=== PATIENT | female | born 1940 | race Caucasian/White ===

== ENCOUNTER 2017-06-24 10:24 | Emergency (ER) | payer MEDICARE ==
[~2017-06-24] VITALS: Ht 154.9 cm; Wt 54.9 kg
[~2017-06-24 10:24] MED LIST: ALBUTEROL0.09 MG/A2 INH; CLARITIN10 MG PO; Claritin-D 10 M1 T24 PO; LEVOFLOXACIN500 MG PO; MEDROL DOSEPAK4 MG PO; SINGULAIR10 MG PO; TESSALON PERLE100 M1 PO
[2017-06-24] MEDS ORDERED: AUGMENTIN 875875 MG PO (10:52)
== END 2017-06-24 10:55 | disposition home or self-care (01) ==
LOC: ED 10:24
DX: S61.451A Open bite of right hand, initial encounter (principal); Z88.6 Allergy status to analgesic agent; Z88.2 Allergy status to sulfonamides; Z88.8 Allergy status to other drugs, medicaments and biological substances; Z79.899 Other long term (current) drug therapy; W55.01XA Bitten by cat, initial encounter; Y93.89 Activity, other specified; Y92.89 Other specified places as the place of occurrence of the external cause; Y99.8 Other external cause status

== ENCOUNTER → 2017-10-01 | Outpatient (CLI) | payer MEDICARE ==
[~2017-10-01] MED LIST changes: +AUGMENTIN 875875 MG PO
== END | disposition home or self-care (01) ==
LOC: RAD 11:28
DX: M89.9 Disorder of bone, unspecified (principal)

== ENCOUNTER 2019-08-29 19:02 | Emergency (ER) | payer MEDICARE ==
[~2019-08-29] VITALS: Ht 154.9 cm; Wt 52.2 kg
[2019-08-29] MEDS ORDERED: AUGMENTIN 875875 MG PO (19:29)
== END 2019-08-29 20:00 | disposition home or self-care (01) ==
LOC: ED 19:02
DX: S61.431A Puncture wound without foreign body of right hand, initial encounter (principal); E78.00 Pure hypercholesterolemia, unspecified; Z23 Encounter for immunization; Z90.49 Acquired absence of other specified parts of digestive tract; Z88.6 Allergy status to analgesic agent; Z88.2 Allergy status to sulfonamides; Z88.8 Allergy status to other drugs, medicaments and biological substances; Z79.899 Other long term (current) drug therapy; W55.01XA Bitten by cat, initial encounter; Y93.89 Activity, other specified; Y92.89 Other specified places as the place of occurrence of the external cause; Y99.8 Other external cause status

== ENCOUNTER 2020-03-10 22:20 | Emergency (ER) | payer MEDICARE ==
[~2020-03-10] VITALS: Ht 162.5 cm; Wt 72.6 kg
[2020-03-10 23:12] LABS: BASO # 0.1 10*3/uL (0.0-0.1); BASO % 1.1 % (0.0-1.0); EOS # 0.2 10*3/uL (0.0-0.4); EOS % 2.7 % (1.0-4.0); HEMATOCRIT 41.1 % (37.0-47.0); LYMPH # 1.9 10*3/uL (1.3-4.4); LYMPH % 30.4 % (27.0-41.0); MEAN CELL VOLUME 91.7 fl (81.0-99.0); MEAN CORPUSCULAR HGB 29.9 pg (27.0-31.0); MEAN CORPUSCULAR HGB CONC 32.6 g/dl (33.0-37.0); MEAN PLATELET VOLUME 8.8 fl (9.6-12.3); MONO # 0.8 10*3/uL (0.1-1.0); MONO % 12.4 % (3.0-9.0); NEUT # 3.4 10*3/uL (2.3-7.9); NEUT % 53.2 % (47.0-73.0); PLATELET COUNT AUTOMATED 276 10*3/uL (130-400); RED BLOOD COUNT 4.48 10*6/uL (4.10-5.10); RED CELL DISTRI WIDTH 13.2 % (0-14.5); WHITE BLOOD COUNT 6.3 10*3/uL (4.8-10.8)
[2020-03-10 23:22] LABS: INTERNATIONAL NORM RATIO 0.9 (2.0-3.5)
[2020-03-10 23:30] LABS: ALBUMIN 3.8 gm/dl (3.1-4.5); ALKALINE PHOSPHATASE 62 U/L (45-117); BUN 11 mg/dl (7-24); CHLORIDE 110 mmol/L (98-107); CREATININE 0.74 mg/dL (0.55-1.02); POTASSIUM 3.9 mmol/L (3.5-5.1); SGOT/AST 20 IU/L (3-35); SGPT/ALT 24 U/L (12-78); SODIUM 141 mmol/L (136-145); TOTAL PROTEIN 6.7 gm/dL (6.4-8.2)
[2020-03-10 23:40] LABS: TROPONIN I < 0.015 ng/ml (<0.045)
[2020-03-11] MEDS ORDERED: METOPROLOL25 MG PO (00:32)
[2020-03-11 00:41] LABS: BILIRUBIN NEGATIVE (NEGATIVE); BLOOD NEGATIVE (NEGATIVE); CLARITY CLEAR (CLEAR); COLOR YELLOW (YELLOW); GLUCOSE NEGATIVE (NEGATIVE); KETONE NEGATIVE (NEGATIVE); LEUKO ESTERASE NEGATIVE (NEGATIVE); NITRITE NEGATIVE (NEGATIVE); SPECIFIC GRAVITY 1.005 (1.005-1.030); UROBILINOGEN 0.2 E.U./dl (0.2-1.0)
[2020-03-11 00:44] LABS: WBC 0-2 wbc/hpf (0-5)
== END 2020-03-11 00:51 | disposition home or self-care (01) ==
LOC: ED 22:20
PROVIDERS: Emergency Medicine
DX: I10 Essential (primary) hypertension (principal); R79.1 Abnormal coagulation profile; E78.00 Pure hypercholesterolemia, unspecified; Z88.6 Allergy status to analgesic agent; Z88.8 Allergy status to other drugs, medicaments and biological substances; Z88.2 Allergy status to sulfonamides; Z79.899 Other long term (current) drug therapy; Z90.49 Acquired absence of other specified parts of digestive tract

== ENCOUNTER 2020-03-13 16:42 | Observation (INO) | payer MEDICARE ==
[~2020-03-13] VITALS: Ht 154.9 cm; Wt 54.5 kg
[~2020-03-13 16:42] MED LIST changes: +METOPROLOL25 MG PO
[2020-03-13 16:47] VITALS: BP 159/76
[2020-03-13 17:14] LABS: BASO % 0.4 % (0.0-1.0); EOS # 0.1 10*3/uL (0.0-0.4); EOS % 0.9 % (1.0-4.0); HEMATOCRIT 42.5 % (37.0-47.0); LYMPH # 1.8 10*3/uL (1.3-4.4); LYMPH % 21.9 % (27.0-41.0); MEAN CELL VOLUME 91.6 fl (81.0-99.0); MEAN CORPUSCULAR HGB CONC 32.7 g/dl (33.0-37.0); MEAN PLATELET VOLUME 8.6 fl (9.6-12.3); MONO # 0.8 10*3/uL (0.1-1.0); MONO % 10.4 % (3.0-9.0); NEUT # 5.3 10*3/uL (2.3-7.9); NEUT % 66.2 % (47.0-73.0); PLATELET COUNT AUTOMATED 297 10*3/uL (130-400); RED BLOOD COUNT 4.64 10*6/uL (4.10-5.10)
[2020-03-13 17:25] LABS: ACT PARTIAL THROMBO TIME 25.7 SECONDS (20.0-32.1)
[2020-03-13 17:30] LABS: ALBUMIN 3.8 gm/dl (3.1-4.5); ALKALINE PHOSPHATASE 67 U/L (45-117); BUN 10 mg/dl (7-24); CHLORIDE 108 mmol/L (98-107); CREATININE 0.71 mg/dL (0.55-1.02); POTASSIUM 4.2 mmol/L (3.5-5.1); SGOT/AST 44 IU/L (3-35); SGPT/ALT 36 U/L (12-78); SODIUM 138 mmol/L (136-145); TOTAL PROTEIN 7.1 gm/dL (6.4-8.2)
[2020-03-13 17:31] LABS: TROPONIN I < 0.015 ng/ml (<0.045)
[2020-03-13 18:40] VITALS: BP 168/66
[2020-03-13] MEDS ORDERED: Lopressor25 MG PO (19:08)
[2020-03-13] MEDS ORDERED: PRAVASTATIN SOD40 MG PO (19:08)
[2020-03-13 19:58] VITALS: BP 168/66
[2020-03-14] VITALS: BP 135/76
[2020-03-14 06:03] LABS: BASO % 0.6 % (0.0-1.0); EOS # 0.2 10*3/uL (0.0-0.4); EOS % 2.5 % (1.0-4.0); HEMATOCRIT 41.6 % (37.0-47.0); LYMPH # 2.3 10*3/uL (1.3-4.4); LYMPH % 34.3 % (27.0-41.0); MEAN CELL VOLUME 92.4 fl (81.0-99.0); MEAN CORPUSCULAR HGB 29.8 pg (27.0-31.0); MEAN CORPUSCULAR HGB CONC 32.2 g/dl (33.0-37.0); MONO # 0.9 10*3/uL (0.1-1.0); MONO % 13.3 % (3.0-9.0); NEUT # 3.3 10*3/uL (2.3-7.9); NEUT % 48.9 % (47.0-73.0); PLATELET COUNT AUTOMATED 287 10*3/uL (130-400); RED CELL DISTRI WIDTH 13.3 % (0-14.5); WHITE BLOOD COUNT 6.7 10*3/uL (4.8-10.8)
[2020-03-14 06:13] LABS: ALBUMIN 3.4 gm/dl (3.1-4.5); BUN 9 mg/dl (7-24); CHLORIDE 109 mmol/L (98-107); CHOLESTEROL 159 mg/dL (<200); CREATININE 0.73 mg/dL (0.55-1.02); POTASSIUM 3.8 mmol/L (3.5-5.1); SGOT/AST 25 IU/L (3-35); SGPT/ALT 29 U/L (12-78); SODIUM 142 mmol/L (136-145); TOTAL PROTEIN 6.3 gm/dL (6.4-8.2); TRIGLYCERIDES 96 mg/dl (<150); VLDL CHOLESTEROL 19 mg/dL (6-40)
[2020-03-14 06:20] LABS: ALKALINE PHOSPHATASE 58 U/L (45-117); FREE T4 1.03 ng/dl (0.76-1.46); HDL CHOLESTEROL 61 mg/dl (40-60); LDL CHOLESTEROL 79 mg/dL (9-159)
[2020-03-14 06:34] LABS: ACT PARTIAL THROMBO TIME 25.6 SECONDS (20.0-32.1)
[2020-03-14 07:24] LABS: VITAMIN D, 25-HYDROXY 44.7 ng/mL (30-100)
[2020-03-14 08:00] VITALS: BP 143/72
[2020-03-14 12:00] VITALS: BP 130/78
[2020-03-14] MEDS ORDERED: LISINOPRIL10 M1 PO (13:31)
== END 2020-03-14 14:11 | disposition home or self-care (01) ==
LOC: ED 16:42 → EDHOLD 17:43 → 4E 17:43
PROVIDERS: Emergency Medicine; Internal Medicine; ADMIT Internal Medicine
DX: I16.1 Hypertensive emergency (principal); E83.41 Hypermagnesemia; E78.5 Hyperlipidemia, unspecified; I10 Essential (primary) hypertension; E87.8 Other disorders of electrolyte and fluid balance, not elsewhere classified; R07.89 Other chest pain; E44.1 Mild protein-calorie malnutrition

== ENCOUNTER → 2020-04-05 | Outpatient (CLI) | payer MEDICARE ==
[~2020-04-05] MED LIST changes: +LISINOPRIL10 M1 PO; +Lopressor25 MG PO; +PRAVASTATIN SOD40 MG PO
[2020-04-05 15:11] LABS: BUN 9 mg/dl (7-24); CHLORIDE 108 mmol/L (98-107); CREATININE 0.83 mg/dL (0.55-1.02); POTASSIUM 4.1 mmol/L (3.5-5.1); SODIUM 140 mmol/L (136-145)
== END | disposition home or self-care (01) ==
LOC: LAB 14:28
PROVIDERS: Nurse Practitioner Family
DX: I10 Essential (primary) hypertension (principal)

== ENCOUNTER → 2020-05-02 | Outpatient (CLI) | payer MEDICARE | END | disposition home or self-care (01) | LOC: RAD 14:01 | DX: M19.031 Primary osteoarthritis, right wrist (principal); M25.731 Osteophyte, right wrist ==

== ENCOUNTER 2021-01-20 14:51 | Emergency (ER) | payer MEDICARE ==
[~2021-01-20] VITALS: Ht 154.9 cm; Wt 53.1 kg
[2021-01-20] MEDS ORDERED: DOXYCYCLINE100 M3 PO (15:28)
== END 2021-01-20 15:31 | disposition home or self-care (01) ==
LOC: ED 14:51
DX: S60.416A Abrasion of right little finger, initial encounter (principal); L03.011 Cellulitis of right finger; Z88.5 Allergy status to narcotic agent; Z88.2 Allergy status to sulfonamides; Z88.8 Allergy status to other drugs, medicaments and biological substances; Z79.899 Other long term (current) drug therapy; Z90.49 Acquired absence of other specified parts of digestive tract; Z98.890 Other specified postprocedural states; W55.03XA Scratched by cat, initial encounter; Y93.89 Activity, other specified; Y92.89 Other specified places as the place of occurrence of the external cause; Y99.8 Other external cause status

== ENCOUNTER → 2021-02-17 | Outpatient (CLI) | payer MEDICARE ==
[~2021-02-17] MED LIST changes: +DOXYCYCLINE100 M3 PO
[2021-02-17 13:18] LABS: BILIRUBIN Negative (Negative); BLOOD Negative (Negative); CLARITY Clear (Clear); COLOR Yellow (Yellow); GLUCOSE Negative (Negative); KETONE Negative (Negative); LEUKO ESTERASE 1+ (Negative); NITRITE Negative (Negative)
[2021-02-17 13:20] LABS: BASO # 0.1 10*3/uL (0.0-0.1); EOS # 0.4 10*3/uL (0.0-0.4); EOS % 4.8 % (1.0-4.0); HEMATOCRIT 46.1 % (37.0-47.0); LYMPH # 2.1 10*3/uL (1.3-4.4); LYMPH % 23.8 % (27.0-41.0); MEAN CELL VOLUME 95.1 fl (81.0-99.0); MEAN CORPUSCULAR HGB 29.9 pg (27.0-31.0); MEAN CORPUSCULAR HGB CONC 31.5 g/dl (33.0-37.0); MEAN PLATELET VOLUME 8.6 fl (9.6-12.3); MONO # 0.8 10*3/uL (0.1-1.0); NEUT # 5.3 10*3/uL (2.3-7.9); NEUT % 61.2 % (47.0-73.0); PLATELET COUNT AUTOMATED 295 10*3/uL (130-400); RED BLOOD COUNT 4.85 10*6/uL (4.10-5.10); WHITE BLOOD COUNT 8.7 10*3/uL (4.8-10.8)
[2021-02-17 13:38] LABS: BACTERIA 1+; MUCOUS 2+
[2021-02-17 13:56] LABS: ALBUMIN 4.3 gm/dl (3.1-4.5); ALKALINE PHOSPHATASE 62 U/L (45-117); BUN 12 mg/dl (7-24); CHLORIDE 106 mmol/L (98-107); CHOLESTEROL 185 mg/dL (<200); CREATININE 0.91 mg/dL (0.55-1.02); HDL CHOLESTEROL 67 mg/dl (40-60); LDL CHOLESTEROL 93 mg/dL (9-159); SGOT/AST 22 IU/L (3-35); SGPT/ALT 22 U/L (12-78); SODIUM 141 mmol/L (136-145); TOTAL PROTEIN 7.6 gm/dL (6.4-8.2); TRIGLYCERIDES 127 mg/dl (<150); VLDL CHOLESTEROL 25 mg/dL (6-40)
== END | disposition home or self-care (01) ==
LOC: LAB 09:18
PROVIDERS: ATTEND Family Medicine
DX: I10 Essential (primary) hypertension (principal); E55.9 Vitamin D deficiency, unspecified; M62.838 Other muscle spasm; M54.2 Cervicalgia; E78.5 Hyperlipidemia, unspecified

== ENCOUNTER 2021-04-19 18:25 | Emergency (ER) | payer MEDICARE ==
[~2021-04-19] VITALS: Ht 154.9 cm; Wt 50.8 kg
[2021-04-19 18:50] LABS: BASO # 0.1 10*3/uL (0.0-0.1); BASO % 0.7 % (0.0-1.0); EOS # 0.3 10*3/uL (0.0-0.4); EOS % 3.9 % (1.0-4.0); HEMATOCRIT 42.8 % (37.0-47.0); LYMPH # 2.3 10*3/uL (1.3-4.4); LYMPH % 28.2 % (27.0-41.0); MEAN CELL VOLUME 91.6 fl (81.0-99.0); MEAN CORPUSCULAR HGB 30.4 pg (27.0-31.0); MEAN CORPUSCULAR HGB CONC 33.2 g/dl (33.0-37.0); MEAN PLATELET VOLUME 8.6 fl (9.6-12.3); MONO # 0.8 10*3/uL (0.1-1.0); MONO % 10.4 % (3.0-9.0); NEUT # 4.5 10*3/uL (2.3-7.9); NEUT % 56.6 % (47.0-73.0); PLATELET COUNT AUTOMATED 318 10*3/uL (130-400); RED BLOOD COUNT 4.67 10*6/uL (4.10-5.10); RED CELL DISTRI WIDTH 12.6 % (0-14.5)
[2021-04-19 19:08] LABS: ALBUMIN 3.9 gm/dl (3.1-4.5); ALKALINE PHOSPHATASE 63 U/L (45-117); BUN 9 mg/dl (7-24); CHLORIDE 106 mmol/L (98-107); CREATININE 0.79 mg/dL (0.55-1.02); POTASSIUM 3.9 mmol/L (3.5-5.1); SGOT/AST 13 IU/L (3-35); SGPT/ALT 17 U/L (12-78); SODIUM 135 mmol/L (136-145)
[2021-04-19 19:16] LABS: TROPONIN I < 0.015 ng/ml (<0.045)
== END 2021-04-19 19:53 | disposition home or self-care (01) ==
LOC: ED 18:25
PROVIDERS: Student in an Organized Health Care Education/Training Program
DX: R07.89 Other chest pain (principal); E87.1 Hypo-osmolality and hyponatremia; Z88.5 Allergy status to narcotic agent; Z88.2 Allergy status to sulfonamides; Z88.8 Allergy status to other drugs, medicaments and biological substances; Z79.899 Other long term (current) drug therapy; Z79.2 Long term (current) use of antibiotics; Z90.49 Acquired absence of other specified parts of digestive tract

== ENCOUNTER 2022-03-15 19:01 | Emergency (ER) | payer MEDICARE, OTHER ==
[~2022-03-15] VITALS: Ht 154.9 cm; Wt 49.0 kg
[2022-03-15] MEDS ORDERED: ZESTRIL20 MG PO (19:18)
== END 2022-03-15 20:37 | disposition home or self-care (01) ==
LOC: ED 19:01
DX: I10 Essential (primary) hypertension (principal); Z88.8 Allergy status to other drugs, medicaments and biological substances; Z79.899 Other long term (current) drug therapy; Z90.49 Acquired absence of other specified parts of digestive tract

== ENCOUNTER 2022-06-03 21:23 | Emergency (ER) | payer MEDICARE, OTHER ==
[~2022-06-03 21:23] MED LIST changes: +ZESTRIL20 MG PO
== END 2022-06-03 23:11 | disposition home or self-care (01) ==
LOC: ED 21:23
DX: R51.9 Headache, unspecified (principal); I10 Essential (primary) hypertension; Z88.8 Allergy status to other drugs, medicaments and biological substances; Z79.899 Other long term (current) drug therapy; Z90.49 Acquired absence of other specified parts of digestive tract; Z98.890 Other specified postprocedural states

== ENCOUNTER 2022-07-27 12:48 | Emergency (ER) | payer MEDICARE, BC ==
[~2022-07-27] VITALS: Ht 154.9 cm; Wt 51.3 kg
== END 2022-07-27 16:16 | disposition home or self-care (01) ==
LOC: ED 12:48
DX: R07.81 Pleurodynia (principal); Z79.899 Other long term (current) drug therapy; W18.30XA Fall on same level, unspecified, initial encounter; Y93.89 Activity, other specified; Y92.89 Other specified places as the place of occurrence of the external cause; Y99.9 Unspecified external cause status

== ENCOUNTER → 2022-12-05 | Outpatient (CLI) | payer OTHER | END | disposition home or self-care (01) | LOC: MAMMO 10:59 | PROVIDERS: ATTEND Family Medicine | DX: Z12.31 Encounter for screening mammogram for malignant neoplasm of breast (principal); N64.9 Disorder of breast, unspecified ==

== ENCOUNTER 2023-03-22 13:02 | Emergency (ER) | payer MEDICARE, OTHER ==
[~2023-03-22] VITALS: Wt 50.3 kg
[2023-03-22] MEDS ORDERED: IBUPROFEN400 MG PO (14:28)
[2023-03-22] MEDS ORDERED: AMOX-CLAV 875-1 EACH PO (14:28)
== END 2023-03-22 14:37 | disposition home or self-care (01) ==
LOC: ED 13:02
DX: S61.451A Open bite of right hand, initial encounter (principal); L03.113 Cellulitis of right upper limb; E78.00 Pure hypercholesterolemia, unspecified; I10 Essential (primary) hypertension; Z88.5 Allergy status to narcotic agent; Z88.2 Allergy status to sulfonamides; Z88.8 Allergy status to other drugs, medicaments and biological substances; Z90.49 Acquired absence of other specified parts of digestive tract; Z98.890 Other specified postprocedural states; Z98.41 Cataract extraction status, right eye; W55.01XA Bitten by cat, initial encounter; Y93.89 Activity, other specified; Y92.89 Other specified places as the place of occurrence of the external cause; Y99.8 Other external cause status

== ENCOUNTER 2023-03-25 14:25 | Emergency (ER) | payer MEDICARE, BC ==
[~2023-03-25 14:25] MED LIST changes: +AMOX-CLAV 875-1 EACH PO; +IBUPROFEN400 MG PO
== END 2023-03-25 15:51 | disposition home or self-care (01) ==
LOC: ED 14:25
DX: Z48.00 Encounter for change or removal of nonsurgical wound dressing (principal); E78.00 Pure hypercholesterolemia, unspecified; I10 Essential (primary) hypertension; Z88.5 Allergy status to narcotic agent; Z88.2 Allergy status to sulfonamides; Z90.49 Acquired absence of other specified parts of digestive tract; Z98.41 Cataract extraction status, right eye; Z98.890 Other specified postprocedural states

== ENCOUNTER 2025-05-25 10:52 | Emergency (ER) | payer MEDICARE, MEDICAID ==
[~2025-05-25] VITALS: Ht 157.4 cm; Wt 62.1 kg
[~2025-05-25 10:52] MED LIST changes: +TYLENOL325 M2 PO
[2025-05-25 11:52] LABS: BILIRUBIN Negative (Negative); BLOOD Negative (Negative); CLARITY Clear (Clear); COLOR Yellow (Yellow); KETONE Negative (Negative); LEUKO ESTERASE 2+ (Negative); NITRITE Positive (Negative); PH 6.5 (4.5-8.0); SPECIFIC GRAVITY <= 1.005 (1.001-1.030); UROBILINOGEN 1.0 E.U./dl (0.0-1.0)
[2025-05-25 12:00] LABS: BACTERIA 3+; WBC 21-30 wbc/hpf (0-5)
[2025-05-25] MEDS ORDERED: Ciprofloxacin Hydrochloride 500 MG TAB PO ONE (12:20)
[2025-05-25] MEDS ORDERED: ACETAMINOPHEN 325 MG TAB PO ONE (12:45)
[2025-05-25] MEDS ORDERED: CIPRO500 MG PO (12:45)
== END 2025-05-25 12:50 ==
LOC: ED 10:52
PROVIDERS: Internal Medicine
DX: N39.0 Urinary tract infection, site not specified (principal); R07.81 Pleurodynia; I10 Essential (primary) hypertension; Z79.899 Other long term (current) drug therapy; Z88.2 Allergy status to sulfonamides; Z88.5 Allergy status to narcotic agent; Z88.8 Allergy status to other drugs, medicaments and biological substances; Z90.49 Acquired absence of other specified parts of digestive tract; Z98.890 Other specified postprocedural states; W07.XXXA Fall from chair, initial encounter; Y93.89 Activity, other specified; Y92.89 Other specified places as the place of occurrence of the external cause; Y99.8 Other external cause status

== ENCOUNTER 2025-05-26 17:45 | Inpatient (IN) | payer MEDICARE, MEDICAID ==
[~2025-05-26] VITALS: Ht 157.4 cm; Wt 61.4 kg
[~2025-05-26 17:45] MED LIST changes: +CIPRO500 MG PO
[2025-05-26 18:18] LABS: BASO # 0.1 10*3/uL (0.0-0.1); BASO % 0.4 % (0.0-1.0); EOS # 0.2 10*3/uL (0.0-0.4); EOS % 1.7 % (1.0-4.0); MEAN CELL VOLUME 92.1 fl (81.0-99.0); MEAN CORPUSCULAR HGB 29.4 pg (27.0-31.0); MEAN PLATELET VOLUME 8.4 fl (9.6-12.3); MONO # 1.5 10*3/uL (0.1-1.0); MONO % 13.0 % (3.0-9.0); NEUT # 7.8 10*3/uL (2.3-7.9); NEUT % 69.4 % (47.0-73.0); NUCLEATED RED BLOOD CELL 0.0 % (0.0-0.0); NUCLEATED RED BLOOD CELL 0.0 10*3/uL (0.0-0.0); PLATELET COUNT AUTOMATED 314 10*3/uL (130-400); RED CELL DISTRI WIDTH 13.0 % (0-14.5)
[2025-05-26 18:23] VITALS: BP 165/88
[2025-05-26 18:35] LABS: BUN 6 mg/dl (9-23)
[2025-05-26 18:43] LABS: BILIRUBIN Negative (Negative); BLOOD Trace-Lysed (Negative); CLARITY Clear (Clear); COLOR Yellow (Yellow); KETONE Negative (Negative); LEUKO ESTERASE Trace (Negative); NITRITE Negative (Negative); PH 6.0 (4.5-8.0); SPECIFIC GRAVITY <= 1.005 (1.001-1.030); UROBILINOGEN 0.2 E.U./dl (0.0-1.0)
[2025-05-26 18:52] LABS: BACTERIA 1+
[2025-05-26] MEDS ORDERED: ACETAMINOPHEN 650 MG SUPP R PRN (21:00)
[2025-05-26] MEDS ORDERED: BISACODYL 10 MG SUPP R PRN (21:00)
[2025-05-26] MEDS ORDERED: ACETAMINOPHEN 325 MG TAB PO PRN (21:00)
[2025-05-26] MEDS ORDERED: BISACODYL 5 MG TAB PO PRN (21:00)
[2025-05-26 22:30] VITALS: BP 162/79
[2025-05-27 06:03] LABS: BASO # 0.1 10*3/uL (0.0-0.1); BASO % 0.9 % (0.0-1.0); EOS # 0.3 10*3/uL (0.0-0.4); EOS % 3.0 % (1.0-4.0); MEAN CELL VOLUME 91.8 fl (81.0-99.0); MEAN CORPUSCULAR HGB 29.7 pg (27.0-31.0); MEAN PLATELET VOLUME 8.6 fl (9.6-12.3); MONO # 1.0 10*3/uL (0.1-1.0); MONO % 11.6 % (3.0-9.0); NEUT # 5.8 10*3/uL (2.3-7.9); NEUT % 69.0 % (47.0-73.0); NUCLEATED RED BLOOD CELL 0.0 % (0.0-0.0); NUCLEATED RED BLOOD CELL 0.0 10*3/uL (0.0-0.0); PLATELET COUNT AUTOMATED 307 10*3/uL (130-400); RED CELL DISTRI WIDTH 13.1 % (0-14.5)
[2025-05-27 06:18] LABS: BUN 6 mg/dl (9-23)
[2025-05-27 08:00] VITALS: BP 153/89
[2025-05-27 12:00] VITALS: BP 150/72
[2025-05-27 16:00] VITALS: BP 151/71
[2025-05-27 20:00] VITALS: BP 138/83
[2025-05-28] VITALS: BP 155/88
[2025-05-28 07:06] LABS: BASO # 0.1 10*3/uL (0.0-0.1); BASO % 0.7 % (0.0-1.0); EOS # 0.3 10*3/uL (0.0-0.4); EOS % 3.2 % (1.0-4.0); MEAN CELL VOLUME 91.9 fl (81.0-99.0); MEAN CORPUSCULAR HGB 29.2 pg (27.0-31.0); MEAN PLATELET VOLUME 8.7 fl (9.6-12.3); MONO # 1.0 10*3/uL (0.1-1.0); MONO % 11.8 % (3.0-9.0); NEUT # 6.0 10*3/uL (2.3-7.9); NEUT % 68.3 % (47.0-73.0); NUCLEATED RED BLOOD CELL 0.0 % (0.0-0.0); NUCLEATED RED BLOOD CELL 0.0 10*3/uL (0.0-0.0); PLATELET COUNT AUTOMATED 268 10*3/uL (130-400); RED CELL DISTRI WIDTH 13.1 % (0-14.5)
[2025-05-28 07:28] LABS: BUN < 5 mg/dl (9-23); SGPT/ALT 13 U/L (5-49)
[2025-05-28 08:00] VITALS: BP 145/85
[2025-05-28] MEDS ORDERED: VIBRA-TAB100 MG PO (11:34)
[2025-05-28 12:00] VITALS: BP 108/71
== END 2025-05-28 15:55 | DRG 689 ==
LOC: ED 17:45 → 5E 19:08 → EDHOLD 19:08 → 5E 21:53
PROVIDERS: Internal Medicine; Student in an Organized Health Care Education/Training Program; ADMIT Student in an Organized Health Care Education/Training Program; ATTEND Student in an Organized Health Care Education/Training Program
DX: N30.01 Acute cystitis with hematuria (principal); G93.41 Metabolic encephalopathy; J98.11 Atelectasis; D72.829 Elevated white blood cell count, unspecified; F03.90 Unspecified dementia, unspecified severity, without behavioral disturbance, psychotic disturbance, mood disturbance, and anxiety; Z66 Do not resuscitate; I10 Essential (primary) hypertension; E78.5 Hyperlipidemia, unspecified; R82.71 Bacteriuria; E78.2 Mixed hyperlipidemia; K44.9 Diaphragmatic hernia without obstruction or gangrene; Z88.2 Allergy status to sulfonamides; Z88.8 Allergy status to other drugs, medicaments and biological substances; Z91.09 Other allergy status, other than to drugs and biological substances; Z79.899 Other long term (current) drug therapy; Z79.01 Long term (current) use of anticoagulants; Z79.2 Long term (current) use of antibiotics; Z78.9 Other specified health status; Z90.49 Acquired absence of other specified parts of digestive tract; Z98.41 Cataract extraction status, right eye; Z82.49 Family history of ischemic heart disease and other diseases of the circulatory system

== ENCOUNTER 2025-07-28 19:14 | Emergency (ER) | payer MEDICARE ==
[~2025-07-28] VITALS: Ht 160 cm; Wt 53.6 kg
[~2025-07-28 19:14] MED LIST changes: +VIBRA-TAB100 MG PO
[2025-07-28] MEDS ORDERED: MIRTAZAPINE7.5 MG PO (19:35)
[2025-07-28] MEDS ORDERED: TYLENOL325 M2 PO (19:37)
== END 2025-07-28 21:49 | disposition home or self-care (01) ==
LOC: ED 19:14
DX: I63.9 Cerebral infarction, unspecified (principal); E78.00 Pure hypercholesterolemia, unspecified; I10 Essential (primary) hypertension; F03.90 Unspecified dementia, unspecified severity, without behavioral disturbance, psychotic disturbance, mood disturbance, and anxiety; Z53.29 Procedure and treatment not carried out because of patient's decision for other reasons; Z90.49 Acquired absence of other specified parts of digestive tract; Z88.2 Allergy status to sulfonamides; Z88.5 Allergy status to narcotic agent; Z88.8 Allergy status to other drugs, medicaments and biological substances; W19.XXXA Unspecified fall, initial encounter